=== PATIENT | female | born 1950 | race Caucasian/White ===

== ENCOUNTER 2025-09-12 12:15 | Emergency (ER) | payer MEDICARE ==
[2025-09-12] MEDS ORDERED: Ketorolac Tromethamine 30 MG (1 mL) VIAL ONE (12:45)
[2025-09-12] MEDS ORDERED: predniSONE 20 MG TAB ONE (14:00)
== END 2025-09-12 14:07 | disposition home or self-care (01) ==
LOC: BURERS 12:15
DX: S79.912A Unspecified injury of left hip, initial encounter (principal); I10 Essential (primary) hypertension; E11.9 Type 2 diabetes mellitus without complications; E03.9 Hypothyroidism, unspecified; W01.198A Fall on same level from slipping, tripping and stumbling with subsequent striking against other object, initial encounter; Y92.000 Kitchen of unspecified non-institutional (private) residence as the place of occurrence of the external cause; Z79.4 Long term (current) use of insulin; Z79.84 Long term (current) use of oral hypoglycemic drugs; Z79.899 Other long term (current) drug therapy
CPT/HCPCS: 96372; 99283; J1885; J7512